=== PATIENT | female | born 1985 | race Caucasian/White ===

== ENCOUNTER 2016-12-10 20:04 | Inpatient (IN) | payer OTHER, SELFPAY ==
[~2016-12-10] VITALS: Ht 162.6 cm; Wt 64.9 kg
[2016-12-10] MEDS ORDERED: D 1010004 PO (20:35)
[2016-12-10] MEDS ORDERED: ZIPR80CA12 PO (20:35)
[2016-12-10] MEDS ORDERED: MOM 30ML SUSPENSION UDC PO PRN (22:00)
[2016-12-10] MEDS ORDERED: traZODone 50 MG TAB PO PRN (22:00)
[2016-12-10] MEDS ORDERED: MAALOX 30 ML SUSP *UDC PO PRN (22:00)
[2016-12-10] MEDS ORDERED: VITA200015 PO (22:08)
[2016-12-10 22:51] VITALS: BP 134/83
[2016-12-11 06:43] VITALS: BP 125/78
--- NOTE | 2016-12-12 04:45 | IPN ---
DATE: 12/09/2016 Staff spoke with Yareli Roman's mother and the following information was discovered that the last six months this patient has been in and out of hospitals over once a month. She is on her Geodon, which was most recently on has been for the last 1 1/2 months prescribed her at [facility]. According to mother, "she has failed every medication." We do not at this time know the doses of these medications. Mentioned were lithium, Depakote, Zyprexa. The patient was noted to do well on Abilify, but according to mom it suddenly failed. However, it also is noted that the patient changes her doses and times. She is "obsessed" with her weight and stops medications when she sees weight gain. Most recently, she has been, according to mother, mad at small things, easily angered, labile and verbally aggressive. 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 Apparently, when she was in the [facility], she became . Her first psychotic break was in 2004. Records of her doses and medications that she has used will need to be gotten. The mother does not recall the patient using Invega.
--- NOTE | 2016-12-12 08:00 | HPE ---
DATE OF ADMISSION: 12/10/2016 Please refer to psychiatric history and evaluation for further details on this admission. This examination and history is intended for medical issues which may need treatment, followup or consult on this 31-year-old female who was transferred from [facility] after she went there as her mother took her as the patient was delusional and hallucinating. She went to [facility] because per the records, she was hearing voices. She felt her meds were not working. Here today, she will not talk at all. The history states she lives with her parents in [place] and reports that per the record, that she was medically retired from the [employer]. Unable to do review of systems, patient would not talk. Unable to do physical exam. Patient did not want one, was not cooperative. Her vital signs on the record show blood pressure 135/80, pulse 68, respirations 16, temperature of 97.1, room air 100%. Patient would not participate in any other part of any exam or review of systems.
--- NOTE | 2016-12-12 13:24 | IPN ---
DATE: 12/12/2016 I saw Yareli Roman today for Ivone Vallecillo. Ms. Roman stayed locked in her bathroom and would not respond. Due to that, we suggested that her room be moved and that further observation be done. Interestingly, another patient and staff approached me and said that Ms. Roman and her had conversed but that when physician or medical staff approach her, she shuts down. No other detailed information except that I shared my weekend admission and progress with Ivone Hymanillan and her esthetician/spa coordinator today. No medication at this time. IMPRESSION: Continues to be schizoaffective disorder Patient has had numerous recent admissions and changes of medication. Information will have to be gathered on that. Mental status could be performed as patient was not responsive to speaking with physician or others. medical planner tried to meet with patient three times today. The first time, she was hiding behind a blanket, the second time she was sitting on a desk, and third time she responded saying that her name was not Yareli Roman. She was also found ripping things up and tearing up pictures. DIRK
--- NOTE | 2016-12-12 13:31 | MHHPE ---
DATE OF ADMISSION: 12/10/2016 This patient came from the [facility]. At that time, the information they provided stated that this 31-year-old female had presented with her mother stating that the patient had made statements that she did not feel safe at home and has been requesting admission to [facility] for suicidal ideation. Her affect was odd, her speech was hostile, but she laughed shortly thereafter. Her mood seemed highly labile, but asked if she had been sleeping, her response was "I'm tired of thinking. " [facility] also reports the patient is a 31-year-old female with schizoaffective disorder presently on Geodon. The patient says she has been compliant with her medications, but has been hearing voices. These hallucinations were making her feel overwhelmed. She reports lower back pain from working out earlier in the day. Described as muscle pain. Her working diagnosis at that time was bipolar mixed with psychotic features, chronic posttraumatic stress disorder, and borderline personality disorder. Staff assessed her there as a 31-year-old female, who presented calm and cooperative at that time, performing calisthenics and other exercises in her room and asking that her stretcher be taken out. Her speech was robotic, alternatively giggly and hostile. She was oriented, but her thought process was disorganized. She denied suicidal ideation, but stated she may not be safe at home. She reported medication compliance. Denied legal issues, drug or alcohol abuse. Her dose of ziprasidone was at maximum recommended dose. Apparently, numerous multiple recent hospitalizations. She was described at that facility as doing exercises in the room, being labile. Her affect was bizarre. Her speech apparently was robotic and removed. She was transferred here due to bed availability. In the emergency room, the patient had presented stating "I have been diagnosed with bipolar disorder, was recently diagnosed with schizoaffective disorder. My medications are not working, so I know that they have given me the wrong diagnosis, right?" The patient's mood was elevated and anxious, maintaining a "blunted affect." She reported she hears voices that disrupt her ability to concentrate, sleep and carry. In the emergency room, she became quickly disorganized with speech and loose association. The patient reported having multiple hospitalizations since 2004. In the emergency room, her speech pattern was pressured. Her mood was described as elevated and anxious. Her affect was described as blunted. Her behavior seemed restless and bizarre. Her energy level seemed erratic. Her thought process was tangential with loose association and flight of ideas. Insight was poor. The patient reported having VA benefits having been in the [employer]. She was medically retired, diagnosed with bipolar disorder and has been in treatment since that time. Lives with her parents. She requested transfer to [facility]; however all [facility] facilities were [facility]. She wanted to go to [facility] despite being told the facility was at capacity. She denied having any thoughts of harming herself or anyone else. She advised that she has been suffering from frequent auditory and visual hallucinations including seeing flashes of light and hearing disturbing voices. I briefly examined the patient this morning and it was reported to me that she was cleaning the patient area. She was seen in the hallway with her head against the wall; and when approached, she began yelling rape and that she was needing her personal area. No further mental status was possible at this time. IMPRESSION: Bipolar disorder with psychotic features. It should be noted that Geodon seems to be at maximum dosage and may need to be changed. In addition, when bed availability at the [facility] occurs, it is possible they may choose to transfer her. DIRK
[2016-12-12] MEDS ORDERED: LORazepam 2 MG/ML VIAL (J2060) IM ONE (15:00)
[2016-12-12] MEDS ORDERED: D31000CA PO (17:45)
--- NOTE | 2016-12-13 09:44 | IPNPDOC ---
[facility] Progress Note Progress Note DATE OF SERVICE: 12/13/16 HISTORY: This is video game script writer's first meeting with patient who was transferred from [facility] due to feeling unsafe at home, per ER report and initial assessors notes, patient was experiencing paranoia, delusional thinking, and psychosis involving hearing voices and seeing flashes of light. Unit staff indicated patient exhibiting bizarre behavior this morning and was observed to be cleaning lounge in frenzied manner this morning, was intrusive at times, floridly manic, responding poorly to staff attempts at redirection. Patient initially requested to speak with video game script writer today, and then refused. Patient later approached another provider requesting Geodon and arrangements were made for immediate restart of medication which patient had prior to been refusing. Patient continued to decline to interact with video game script writer, however, was calm and returned to room where she was observed to be sitting quietly. Later in morning patient apparently triggered fire alarm, escalated, and eventually was coded and medicated with 2 mg Ativan IM with good effect. On follow up, patient continued to decline to interact with video game script writer, however, was observed to be calm with no signs of acute distress. Patient has notable history of failure to respond to psychotropic medications as follows: Risperdal, Depakote, Abilify, Zyprexa, Wellbutrin, is at max dose of Geodon, reportedly with only partial effect prior to hospitalization. Patient is allergic to Haldol. Patient has questionable history of medication compliance. VITAL SIGNS: See below. NEW TEST RESULTS: No new results. Labs completed at [facility] on 12/08/16 within normal limits 12/10/16 EKG sinus rhythm with left axis deviation 12/10/15 hCG negative CURRENT MEDICATIONS: See below. MENTAL STATUS EXAMINATION: Patient is 31-year-old single female, medically retired , appears disheveled dressed in own clothing, makes poor eye contact, ambulates with steady gait, appears stated age. Speech: Is impoverished, delayed response, pressured, tangential, flight of ideas, normal volume, hostile at times Language skills are appear to be intact that require further assessment Thought processes including: Not goal-directed. Thought content: Irrational, illogical, tangential, paranoid, associations are loose and tangential Description of abnormal or psychotic thoughts: Declines to respond but expresses delusional thinking, appears to be experiencing intermittent audiovisual hallucinations, appears to be responding to internal stimuli, reported in ER history of hearing voices and seeing flashes of light Judgment: Poor. Insight: Poor. Orientation to time, place and person. Recent and remote memory: Requires further evaluation. Attention span and concentration: Poor. Language: Requires further evaluation. Fund of knowledge: Requires further evaluation. Mood: Labile, irritable, observed laughing inappropriately at times by staff, manic, appears anxious, irritable, depressed, Affect: Blunted, agitated at times DIAGNOSES: Schizoaffective disorder, rule out bipolar disorder, wilbert. ER record indicates patient has also been diagnosed in the past with borderline personality disorder. ASSESSMENT: Patient responded positively to Geodon restart and PRN medication today, is currently only willing to take Geodon. Patient was placed on one-to- one observation at time of code which will be reevaluated tomorrow. Will continue to monitor patient's response to medications, will attempt to switch patient to injectable medication once patient is re-stabilized on medication and is able to evaluate medication options. senior energy market coordinator will attempt to access collateral information to facilitate patient's treatment. Will begin to evaluate appropriateness of patient transfer to long-term care, either at [facility] or [facility] if patient does not respond to treatment and reasonable amount of time. MANAGEMENT PLAN: Encourage patient to continue taking psychotropic medication to address symptoms Patient on one-to-one observation Maintain safety precautions Patient to attend groups and participate in unit programming to develop coping strategies when able Engage patient in discharge planning process and arrange meeting with support system to ensure safe discharge planning when appropriate Patient to follow up with PCM upon discharge TIME SPENT: 60 minutes. Vital Signs Vital Signs Date Time Temp Pulse Resp B/P Pulse Ox O2 Delivery O2 Flow Rate FiO2 12/11/16 06:43 97.9 68 16 125/78 12/10/16 22:14 100 Room Air Current Medications Current Medications Acetaminophen (Tylenol Tab) 650 mg Q6HP PRN PO HEADACHE or DISCOMFORT; Start at 22:00; Stop 01/09/17 at 21:59 Al Hydrox/Mg Hydrox/Simethicone (Mylanta) 30 ml Q4HP PRN PO HEARTBURN/ INDIGESTION; Start 12/10/16 at 22:00; Stop 01/09/17 at 21:59 Diphenhydramine HCl (Benadryl) 50 mg Q4HP PRN PO ANXIETY/AGITATION; Start 12/11 at 13:30; Stop 01/10/17 at 13:29 Home Med (Med Rec Complete!) ASDIRECTED XX ; Start 12/10/16 at 22:15; Stop at 22:15; Status DC Lorazepam (Ativan) 2 mg Q4HP PRN PO ANXIETY/AGITATION; Start 12/11/16 at 13:30 ; Stop 12/18/16 at 13:29 Magnesium Hydroxide (Milk Of Magnesia) 30 ml DAILYPRN PRN PO CONSTIPATION; Start 12/10/16 at 22:00; Stop 01/09/17 at 21:59 Trazodone HCl (Desyrel) 50 mg QHSP PRN PO INSOMNIA; Start 12/10/16 at 22:00; Stop 01/09/17 at 21:59 Allergies Coded Allergies: Codeine (Verified Allergy, Unknown, 12/10/16) Haloperidol (Verified Allergy, Unknown, 12/10/16) Ivone Moon Dec 13, 2016 09:44
[2016-12-13] MEDS: ZIPRASIDONE 80 MG CAP (GEODON) PO SCH ×2 (10:18→18:11)
[2016-12-13 11:59] VITALS: BP 138/96
[2016-12-13] MEDS ORDERED: LORazepam 2 MG/ML VIAL (J2060) IM ONE (12:00)
[2016-12-13 18:00] VITALS: BP 125/73
[2016-12-14 06:18] VITALS: BP 135/83
[2016-12-14] MEDS: ZIPRASIDONE 80 MG CAP (GEODON) PO SCH (08:02)
--- NOTE | 2016-12-14 11:51 | CR.PDOC ---
[facility] Consultation Consultation PCP: None Known ATTENDING: Dr. Abhinav Noel HPI: 31yoF transferred from [facility] admitted to [facility] 12/10/16 for Bipolar disorder, being medically re-examined today. I am requested to reevaluate the patient today as per attending provider. I am requested to reevaluate labs and EKG from [facility] transfer and reattempt H&P. The patient was in her room with VO present. Patient is again denying to participate with history and physical. History is taken from chart. PMHx/PSH: as stated in chart Bipolar disorder PTSD BPD SOCHX: Resides in: [facility] Marital Status: Single per chart Tobacco use: non smoker per chart ETOH: none per chart Illicit Drugs: none per chart IV Drug Use: none per chart Tattoos done unprofessionally: unknown FAMHX: Pt is declining to provide history. ROS: pt is declining to provide history. PE: Pt declines to participate. [facility] 12/10/16. EKG: SR 85 bpm. LAD. [facility] 12/08/16 WBC 5.0 RBC 4.5 Hemoglobin 14.2 Hematocrit 40.2 MCV 88.4 MCH 31.2 Platelet 210 Sodium 138 Potassium 4.5 Chloride 103 CO2 24.1 Calcium 9.4 Glucose 76 BUN 14 Serum creatinine 0.9 Total protein 7.8 Total bilirubin 0.7 AST 35 ALT 16 GFR 73 Toxicology unremarkable HCG negative A&P: 31yoF transferred from [facility] admitted to [facility] 12/10/16 for Bipolar disorder, being medically re-examined today. I am requested to reevaluate the patient today as per attending provider. I am requested to reevaluate labs and EKG from admission and reattempt H&P. Patient is again denying to participate with history and physical. History is taken from chart. 1. Psych. Plan per Psychiatry. EKG on file. 2. Labs are reviewed from [facility] as noted above. 3. Follow up with PCP on discharge. 4. recreation therapy aides teacher Niharika and Andi present when I re-attempted to interview and examine patient. Vital Signs/I&O Vital Signs Date Time Temp Pulse Resp B/P Pulse Ox O2 Delivery O2 Flow Rate FiO2 12/14/16 06:18 97.5 72 18 135/83 12/10/16 22:14 100 Room Air Allergies Coded Allergies: Codeine (Verified Allergy, Unknown, 12/10/16) Haloperidol (Verified Allergy, Unknown, 12/10/16) Home Medications Scheduled Cholecalciferol (D3) 1,000 Unit Cap 1,000 UNIT PO DAILY nutritional supplement ( Reported) Ziprasidone Hydrochloride (Ziprasidone HCl) 80 Mg Cap 160 MG PO QHS BIPOLAR DISORDER (Reported) Vania Jama Dec 14, 2016 11:51 Vania Jama Dec 14, 2016 11:51
[2016-12-14] MEDS: LORazepam 2 MG TAB PO PRN ×2 (14:47→21:42)
[2016-12-14] MEDS: diphenhydrAMINE 50 MG CAP PO PRN ×2 (15:11→21:42)
--- NOTE | 2016-12-14 16:16 | IPNPDOC ---
[facility] Progress Note Progress Note DATE OF SERVICE: 12/14/16 HISTORY: Plumbing Mechanic met with patient today to assess treatment progress on inpatient unit. Patient was transferred from [facility] due to feeling unsafe at home , per ER report and initial assessors notes, patient was experiencing paranoia, delusional thinking, and psychosis involving hearing voices and seeing flashes of light. Unit staff indicate patient was calmer this morning and in better behavioral control, early this afternoon became agitated and was agreeable to taking PRN medication. Patient also attempted to attend group, apparently became frustrated in group and broke a pain pressure. Patient has been observed to be walking always, actively pacing at times, has been redirectable and commercial real estate underwriter has been able to engage patient for short interactions. Patient has stated that she is willing to take in [place], indicates today she believes Geodon has become only partially effective. Patient denies medication side effects. Patient indicates she is depressed and anxious, denied feeling suicidal or homicidal, provided no concrete response to commercial real estate underwriter's inquiry regarding audiovisual hallucinations, denied having urge to engage in self-injurious behavior. Patient's concentration and focus appear limited, energy level appears to vacillate, patient states her appetite is "fine." Per nursing, patient has been eating. At time of interaction patient was observed to be calm with no signs of acute distress. Patient has notable history of failure to respond to psychotropic medications as follows: Risperdal, Depakote, Abilify, Zyprexa, Wellbutrin, is at max dose of Geodon, reportedly with only partial effect prior to hospitalization. Patient is allergic to Haldol. Patient has questionable history of medication compliance. VITAL SIGNS: See below. NEW TEST RESULTS: No new results. Labs completed at [facility] on 12/08/16 within normal limits 12/10/16 EKG sinus rhythm with left axis deviation 12/10/15 hCG negative CURRENT MEDICATIONS: See below. MENTAL STATUS EXAMINATION: Patient is 31-year-old single female, medically retired , appears disheveled dressed in own clothing, makes poor eye contact, ambulates with steady gait, appears stated age. Speech: Is impoverished, delayed response, pressured, tangential, flight of ideas, normal volume, irritable at times Language skills appear to be intact but require further assessment Thought processes including: Not goal-directed. Thought content: Irrational, illogical, tangential, paranoid, associations are loose and tangential Description of abnormal or psychotic thoughts: Declines to respond but expresses delusional thinking, appears to be experiencing intermittent audiovisual hallucinations, appears to be responding to internal stimuli, reported in ER history of hearing voices and seeing flashes of light Judgment: Poor. Insight: Poor. Orientation to time, place and person. Recent and remote memory: Requires further evaluation. Attention span and concentration: Poor. Language: Requires further evaluation. Fund of knowledge: Requires further evaluation. Mood: Labile, irritable, observed crying while pacing hallway this afternoon, appears less manic than yesterday but continues to appear anxious, irritable, depressed, Affect: Blunted, irritable at times, afternoon agitation DIAGNOSES: Schizoaffective disorder, rule out bipolar disorder, wilbert. ER record indicates patient has also been diagnosed in the past with borderline personality disorder. ASSESSMENT: Patient responded positively to Geodon restart, had third dose this morning, informed commercial real estate underwriter at time of assessment that she wants to change medications to invega, added she has discussed with her mother. Patient to remain on one-to-one observation, has generally been compliant, need for one-to- one will be reevaluated tomorrow. Will begin invega tonight and will continue to monitor patient's response to medications, will attempt to switch patient to injectable medication once patient is re-stabilized on medication and is able to evaluate medication options. occupational health coordinator will continue to attempt to access collateral information to facilitate patient's treatment. Will begin process to transfer patient to longer term care at [place] and/or [facility] if patient does not respond to treatment in reasonable timeframe. MANAGEMENT PLAN: Initiate med trial invega 3 mg po q hs with plan to titrate as tolerated by patient. Change Geodon to 80 mg po q a.m. and evaluate discontinuation of medication. Patient on one-to-one observation Maintain safety precautions Patient to attend groups and participate in unit programming to develop coping strategies when able Engage patient in discharge planning process and arrange meeting with support system to ensure safe discharge planning when appropriate Patient to follow up with PCM upon discharge TIME SPENT: 40 minutes. Vital Signs Vital Signs Date Time Temp Pulse Resp B/P Pulse Ox O2 Delivery O2 Flow Rate FiO2 12/14/16 06:18 97.5 72 18 135/83 12/10/16 22:14 100 Room Air Current Medications Current Medications Acetaminophen (Tylenol Tab) 650 mg Q6HP PRN PO HEADACHE or DISCOMFORT; Start at 22:00; Stop 01/09/17 at 21:59 Al Hydrox/Mg Hydrox/Simethicone (Mylanta) 30 ml Q4HP PRN PO HEARTBURN/ INDIGESTION; Start 12/10/16 at 22:00; Stop 01/09/17 at 21:59 Diphenhydramine HCl (Benadryl) 50 mg Q4HP PRN PO ANXIETY/AGITATION Last administered on 12/14/16 15:11; Start 12/11/16 at 13:30; Stop 01/10/17 at 13:29 Home Med (Med Rec Complete!) ASDIRECTED XX ; Start 12/10/16 at 22:15; Stop at 22:15; Status DC Lorazepam (Ativan) 2 mg Q4HP PRN PO ANXIETY/AGITATION Last administered on 12/14 14:47; Start 12/11/16 at 13:30; Stop 12/18/16 at 13:29 Magnesium Hydroxide (Milk Of Magnesia) 30 ml DAILYPRN PRN PO CONSTIPATION; Start 12/10/16 at 22:00; Stop 01/09/17 at 21:59 Trazodone HCl (Desyrel) 50 mg QHSP PRN PO INSOMNIA; Start 12/10/16 at 22:00; Stop 01/09/17 at 21:59 Ziprasidone (Geodon) 80 mg BIDWM PO Last administered on 12/14/16 08:02; Start 12/13/16 at 08:00; Stop 01/12/17 at 07:59 Allergies Coded Allergies: Codeine (Verified Allergy, Unknown, 12/10/16) Haloperidol (Verified Allergy, Unknown, 12/10/16) Ivone Moon Dec 14, 2016 16:16
[2016-12-14 18:35] VITALS: BP 136/86
[2016-12-14] MEDS ORDERED: PALIPERIDONE 3 MG ER TAB (INVEGA) PO SCH (21:00)
[2016-12-15 06:42] VITALS: BP 128/78
[2016-12-15] MEDS ORDERED: ZIPRASIDONE 80 MG CAP (GEODON) PO SCH (09:00)
[2016-12-15] MEDS ORDERED: LORazepam 2 MG/ML VIAL (J2060) IM STA ×2 (10:35→10:39)
[2016-12-15] MEDS ORDERED: LORazepam 2 MG/ML VIAL (J2060) As Ordered ONE (10:37)
[2016-12-15] MEDS: PALIPERIDONE 3 MG ER TAB (INVEGA) PO SCH (11:08)
--- NOTE | 2016-12-15 13:11 | IPNPDOC ---
[facility] Progress Note Progress Note DATE OF SERVICE: 12/15/16 HISTORY: Paper Steamer met with patient this morning to assess treatment progress on inpatient unit. Patient was transferred from [facility] due to feeling unsafe at home , per ER report and initial assessors notes, patient was experiencing paranoia, delusional thinking, and psychosis involving hearing voices and seeing flashes of light. Patient was observed walking hallway, requested to meet with advertising copy writer in her room, was able to calmly sit on her bed for interaction. Patient indicates she wants to be transferred [place] facility, was made aware that we are awaiting word on bed availability. Patient makes improved eye contact today , is able to initiate and track conversation, informs advertising copy writer she feels "numb," denied invega dedication side effects, reiterates today that her Geodon was not working. Patient reported feeling "very" depressed, reported moderate anxiety, denied suicidal and homicidal ideation, denied audiovisual hallucinations, and denied urge to engage in self-injurious behavior. Paper Steamer recommended patient take increased dose of invega, patient indicated she is agreeable. At time of interaction patient reported improved sleep, stable appetite and energy level. Patient denied symptoms of physical pain. Addendum: Soon after interaction, apparently patient intruded on intervention being attempted by staff with another patient, escalated, refused to take by mouth PRN medication and was not redirectable. Patient was coded and given Ativan 2 mg IM with good effect. On follow-up patient was observed to be calm with no signs of acute distress noted. Patient has notable history of failure to respond to psychotropic medications as follows: Risperdal, Depakote, Abilify, Zyprexa, Wellbutrin, is at max dose of Geodon, reportedly with only partial effect prior to hospitalization. Patient is allergic to Haldol. Patient has questionable history of medication compliance. VITAL SIGNS: See below. NEW TEST RESULTS: No new results. Labs completed at [facility] on 12/08/16 within normal limits 12/10/16 EKG sinus rhythm with left axis deviation 12/10/15 hCG negative CURRENT MEDICATIONS: See below. MENTAL STATUS EXAMINATION: Patient is 31-year-old single female, medically retired , appears disheveled dressed in own clothing, makes improved eye contact, ambulates with steady gait, appears stated age. Speech: Is impoverished, delayed response, pressured, tangential, flight of ideas, normal volume, irritable at times, more conversant today Language skills appear to be intact but require further assessment Thought processes including: Not goal-directed. Thought content: Irrational, illogical, tangential, paranoid, associations remain loose, patient is less tangential Description of abnormal or psychotic thoughts: Patient states she is delusional , declines to elaborate, denies audiovisual hallucinations but appears to be responding to internal stimuli, reported in ER history of hearing voices and seeing flashes of light Judgment: Poor. Insight: Poor. Orientation to time, place and person. Recent and remote memory: Requires further evaluation. Attention span and concentration: Poor. Language: Requires further evaluation. Fund of knowledge: Requires further evaluation. Mood: Labile, irritable, tearful at times during interaction, appears less manic than yesterday but continues to appear anxious, irritable, depressed, Affect: Blunted, irritable at times DIAGNOSES: Schizoaffective disorder, rule out bipolar disorder, wilbert. ER record indicates patient has also been diagnosed in the past with borderline personality disorder. ASSESSMENT: Patient seems to be responding positively to Invega initiation, is more conversant today and marginally better able to describe symptoms, indicates she is agreeable to Invega dose increase, denies medication side effects other than feeling "numb" emotionally, then indicates emotional sensation preexisted initiation of invega. Patient to remain on one-to-one observation, has generally been compliant, need for one-to-one will be reevaluated tomorrow. Will increase invega and will continue to monitor patient' s response to medications, will attempt to switch patient to injectable medication once patient is re-stabilized on medication and is able to evaluate medication options. employee benefits coordinator will continue to attempt to access collateral information to facilitate patient's treatment and to make arrangements for transfer [place] [facility] when bed is available. MANAGEMENT PLAN: Discontinue Geodon. Increase invega to 6 mg po q day. Patient on one-to-one observation Maintain safety precautions Patient to attend groups and participate in unit programming to develop coping strategies when able Engage patient in discharge planning process and arrange meeting with support system to ensure safe discharge planning when appropriate Patient to follow up with PCM upon discharge TIME SPENT: 35 minutes. Vital Signs Vital Signs Date Time Temp Pulse Resp B/P Pulse Ox O2 Delivery O2 Flow Rate FiO2 12/15/16 06:42 97.5 87 16 128/78 12/10/16 22:14 100 Room Air Current Medications Current Medications Acetaminophen (Tylenol Tab) 650 mg Q6HP PRN PO HEADACHE or DISCOMFORT; Start at 22:00; Stop 01/09/17 at 21:59 Al Hydrox/Mg Hydrox/Simethicone (Mylanta) 30 ml Q4HP PRN PO HEARTBURN/ INDIGESTION; Start 12/10/16 at 22:00; Stop 01/09/17 at 21:59 Diphenhydramine HCl (Benadryl) 50 mg Q4HP PRN PO ANXIETY/AGITATION Last administered on 12/14/16 21:42; Start 12/11/16 at 13:30; Stop 01/10/17 at 13:29 Home Med (Med Rec Complete!) ASDIRECTED XX ; Start 12/10/16 at 22:15; Stop at 22:15; Status DC Lorazepam (Ativan) 2 mg Q4HP PRN PO ANXIETY/AGITATION Last administered on 12/14 21:42; Start 12/11/16 at 13:30; Stop 12/18/16 at 13:29 Magnesium Hydroxide (Milk Of Magnesia) 30 ml DAILYPRN PRN PO CONSTIPATION; Start 12/10/16 at 22:00; Stop 01/09/17 at 21:59 Paliperidone (Invega) 3 mg QHS PO Last administered on 12/14/16 20:06; Start 12/14/16 at 21:00; Stop 12/15/16 at 10:44; Status DC Paliperidone (Invega) 6 mg DAILY PO Last administered on 12/15/16 11:08; Start 12/15/16 at 09:00; Stop 01/14/17 at 08:59 Trazodone HCl (Desyrel) 50 mg QHSP PRN PO INSOMNIA Last administered on 20:06; Start 12/10/16 at 22:00; Stop 01/09/17 at 21:59 Ziprasidone (Geodon) 80 mg BIDWM PO Last administered on 12/14/16 08:02; Start 12/13/16 at 08:00; Stop 12/14/16 at 16:36; Status DC Ziprasidone (Geodon) 80 mg QAM PO ; Start 12/15/16 at 09:00; Stop 12/15/16 at 12 :49; Status DC Allergies Coded Allergies: Codeine (Verified Allergy, Unknown, 12/10/16) Haloperidol (Verified Allergy, Unknown, 12/10/16) Ivone Moon Dec 15, 2016 13:11
[2016-12-15 14:10] VITALS: BP 146/79
[2016-12-15 18:00] VITALS: BP 111/58
[2016-12-16 06:26] VITALS: BP 146/86
[2016-12-16] MEDS: PALIPERIDONE 3 MG ER TAB (INVEGA) PO SCH (08:30)
[2016-12-16] MEDS: LORazepam 2 MG TAB PO PRN (09:17)
--- NOTE | 2016-12-16 17:15 | IPNPDOC ---
[facility] Progress Note Progress Note DATE OF SERVICE: 12/16/16 HISTORY: Patient was transferred from [facility] due to feeling unsafe at home, per ER report and initial assessors notes, patient was experiencing paranoia, delusional thinking, and psychosis involving hearing voices and seeing flashes of light. Billing And Accounting Staff Assistant met with patient this morning to assess treatment progress on inpatient unit. Patient has utilized PRN Ativan 1 today, has been more visible on unit, walking the hallway, was more engageable for assessment purposes and stated, "it's possible the medication might be beginning to help." Patient registers no complaints regarding medication side effects. Patient was observed to be reading Bible in her room earlier in morning, then sitting closer to one- to-one observer near doorway of room. Patient met with functional tester typewriters in her room, offered functional tester typewriters a chair on which to sit, sat on her bed across from functional tester typewriters and made improved eye contact. Patient was able to ask repetitive questions related to medication and treatment, also made attempts to explain to functional tester typewriters that she continues to experience "demons in my head and they're trying to take me over," added, "when I look in the mirror I don't recognize the face." Patient reported slight reduction in symptoms of anxiety and depression, endorsed audio and visual hallucinations but denied command element. Patient denied suicidal and homicidal ideation. Patient indicates today she is comfortable on unit, states she would be alright staying on unit if no [place] beds become available. Patient has showered and washed her hair, reported improved sleep, stated appetite and energy levels remain stable. Patient denied symptoms of physical pain and presented with no signs of acute distress at time of interaction. Patient has notable history of failure to respond to psychotropic medications as follows: Risperdal, Depakote, Abilify, Zyprexa, Wellbutrin, is at max dose of Geodon, reportedly with only partial effect prior to hospitalization. Patient is allergic to Haldol. Patient has questionable history of medication compliance. VITAL SIGNS: See below. NEW TEST RESULTS: No new results. Labs completed at [facility] on 12/08/16 within normal limits 12/10/16 EKG sinus rhythm with left axis deviation 12/10/15 hCG negative CURRENT MEDICATIONS: See below. MENTAL STATUS EXAMINATION: Patient is 31-year-old single female, medically retired , appears disheveled dressed in own clothing, makes improved eye contact, ambulates with steady gait, appears stated age. Speech: Richard impoverished, more spontaneous, reduced delay in response, remains pressured pressured, tangential, flight of ideas, normal volume, more conversant today Language skills appear to be intact but require further assessment Thought processes including: More goal-directed. Thought content: Remains irrational, illogical, tangential, paranoid, associations are less loose, patient is less tangential Description of abnormal or psychotic thoughts: Patient states she is delusional and is better able to elaborate today, endorses audiovisual hallucinations but appears to be responding less to internal stimuli, reported in ER history of hearing voices and seeing flashes of light Judgment: Poor. Insight: Poor. Orientation to time, place and person. Recent and remote memory: Requires further evaluation. Attention span and concentration: Severely limited Language: Requires further evaluation, improving. Fund of knowledge: Requires further evaluation. Mood: "I'm still depressed." Patient is tearful earlier in a.m., mood improves as day progresses, appears less irritable and manic than yesterday but continues to appear anxious, depressed Affect: Blunted, less irritability DIAGNOSES: Schizoaffective disorder, rule out bipolar disorder, wilbert. ER record indicates patient has also been diagnosed in the past with borderline personality disorder. ASSESSMENT: Patient continues to respond to Invega, is more conversant today and better able to describe symptoms, indicates she is experiencing some symptom improvement with recent invega dose increase. Patient today denies medication side effects. Patient will remain on one-to-one observation, has generally been compliant, attempted to attend some groups today and per staff report crumpled up paper and was a disruption, however, did not lose behavioral control. Need for one-to-one will be reevaluated tomorrow. Will continue to monitor patient's response to medications and will titrate as tolerated by patient. Will attempt to switch patient to injectable medication once patient is stabilized on medication and is able to communicate medication options. irb compliance coordinator will continue to attempt to access collateral information to facilitate patient's treatment and to make arrangements for transfer to [place]/ [facility] when bed is available. MANAGEMENT PLAN: Continue invega 6 mg po q day, Ativan 2 mg po q 6 hours PRN anxiety/agitation, Benadryl 50 mg po q 6 hours anxiety/agitation, and trazodone 50 mg po hs PRN insomnia Patient on one-to-one observation Maintain safety precautions Patient to attend groups and participate in unit programming to develop coping strategies as able Engage patient in discharge planning process and arrange meeting with support system to ensure safe discharge planning when appropriate Patient to follow up with PCM upon discharge TIME SPENT: 35 minutes. Vital Signs Vital Signs Date Time Temp Pulse Resp B/P Pulse Ox O2 Delivery O2 Flow Rate FiO2 12/16/16 06:26 97.9 88 16 146/86 12/10/16 22:14 100 Room Air Current Medications Current Medications Acetaminophen (Tylenol Tab) 650 mg Q6HP PRN PO HEADACHE or DISCOMFORT; Start at 22:00; Stop 01/09/17 at 21:59 Al Hydrox/Mg Hydrox/Simethicone (Mylanta) 30 ml Q4HP PRN PO HEARTBURN/ INDIGESTION; Start 12/10/16 at 22:00; Stop 01/09/17 at 21:59 Diphenhydramine HCl (Benadryl) 50 mg Q4HP PRN PO ANXIETY/AGITATION Last administered on 12/14/16 21:42; Start 12/11/16 at 13:30; Stop 01/10/17 at 13:29 Home Med (Med Rec Complete!) ASDIRECTED XX ; Start 12/10/16 at 22:15; Stop at 22:15; Status DC Lorazepam (Ativan) 2 mg Q4HP PRN PO ANXIETY/AGITATION Last administered on 12/16 09:17; Start 12/11/16 at 13:30; Stop 12/18/16 at 13:29 Magnesium Hydroxide (Milk Of Magnesia) 30 ml DAILYPRN PRN PO CONSTIPATION; Start 12/10/16 at 22:00; Stop 01/09/17 at 21:59 Paliperidone (Invega) 3 mg QHS PO Last administered on 12/14/16 20:06; Start 12/14/16 at 21:00; Stop 12/15/16 at 10:44; Status DC Paliperidone (Invega) 6 mg DAILY PO Last administered on 12/16/16 08:30; Start 12/15/16 at 09:00; Stop 01/14/17 at 08:59 Trazodone HCl (Desyrel) 50 mg QHSP PRN PO INSOMNIA Last administered on 20:06; Start 12/10/16 at 22:00; Stop 01/09/17 at 21:59 Ziprasidone (Geodon) 80 mg BIDWM PO Last administered on 12/14/16 08:02; Start 12/13/16 at 08:00; Stop 12/14/16 at 16:36; Status DC Ziprasidone (Geodon) 80 mg QAM PO ; Start 12/15/16 at 09:00; Stop 12/15/16 at 12 :49; Status DC Allergies Coded Allergies: Codeine (Verified Allergy, Unknown, 12/10/16) Haloperidol (Verified Allergy, Unknown, 12/10/16) Ivone Moon Dec 16, 2016 17:15
[2016-12-16 18:00] VITALS: BP 120/72
[2016-12-17] MEDS: PALIPERIDONE 3 MG ER TAB (INVEGA) PO SCH (08:25)
--- NOTE | 2016-12-17 15:33 | IPN ---
DATE: 12/17/2016 Ms. Bruner requested to speak to me. She wanted to be taken off of her sitter and one-to-one and participate in groups. I discussed this with the staff. They were still not comfortable with her. Apparently she did not follow instructions this morning in group, and it was felt that the milieu in the unit was still somewhat agitated. We will re-discuss this again tomorrow. The patient is presently taking 6 mg of Invega. I will not make any change in her medication as of today. MENTAL STATUS EXAMINATION: Speech is normal. Mood is irritable. Affect is serious. Fund of knowledge is within normal limits. No disturbance of language. Attention and concentration within normal-normal. The patient presently is overtly displaying abnormal or psychotic thoughts, but I did not question her on these in order to not agitate her. She is fully oriented in three spheres. DIAGNOSIS: As per Ivone Moon.
[2016-12-17 18:00] VITALS: BP 138/85
[2016-12-18 06:22] VITALS: BP 132/64
[2016-12-18] MEDS: PALIPERIDONE 3 MG ER TAB (INVEGA) PO SCH (08:01)
[2016-12-18 18:00] VITALS: BP 133/82
[2016-12-19 06:21] VITALS: BP 167/72
[2016-12-19] MEDS: ACETAMINOPHEN TAB 650MG DOSE (2X325MG) PO PRN ×2 (07:03→13:07)
[2016-12-19] MEDS: PALIPERIDONE 3 MG ER TAB (INVEGA) PO SCH (08:06)
[2016-12-19 16:46] LABS: MEAN CORPUSCULAR HEMOGLOBIN 32.2 pg (27.0-33.0); MEAN CORPUSCULAR HGB CONC 35.4 g/dl (32.0-36.5); MEAN CORPUSCULAR VOLUME 90.8 fl (80.0-96.0); RED CELL DISTRIBUTION WIDTH 12.4 % (11.5-14.5); WHITE BLOOD COUNT 3.8 K/mm3 (4.0-10.0)
[2016-12-19] MEDS ORDERED: TRAZ50TA4 PO (16:48)
[2016-12-19] MEDS ORDERED: ATIV2TAB PO (16:48)
[2016-12-19] MEDS ORDERED: MILKSUS PO (16:48)
[2016-12-19] MEDS ORDERED: INVE6TAB2 PO (16:48)
[2016-12-19] MEDS ORDERED: BENA25CA4 PO (16:48)
[2016-12-19] MEDS ORDERED: MYLASUS6 PO (16:48)
[2016-12-19] MEDS ORDERED: TYLE325C PO (16:48)
[2016-12-19 17:22] LABS: METHADONE URINE NEGATIVE (NEGATIVE)
[2016-12-19 17:50] LABS: ALBUMIN/GLOBULIN RATIO 1.54 (1.00-1.93); ALKALINE PHOSPHATASE 44 U/L (45-117); ALT/SGPT 13 U/L (12-78); ANION GAP 8 MEQ/L (8-16); AST/SGOT 22 U/L (15-37); BILIRUBIN,TOTAL 0.3 MG/DL (0.2-1.0); BLOOD UREA NITROGEN 11 MG/DL (7-18); CALCIUM LEVEL 9.2 MG/DL (8.5-10.1); CARBON DIOXIDE LEVEL 26 MEQ/L (21-32); CHLORIDE LEVEL 105 MEQ/L (98-107); GLOMERULAR FILTRATION RATE > 60.0 (>60); GLUCOSE, FASTING 96 MG/DL (70-105); POTASSIUM SERUM 4.5 MEQ/L (3.5-5.1); SODIUM LEVEL 139 MEQ/L (136-145); TOTAL PROTEIN 6.6 GM/DL (6.4-8.2)
[2016-12-19 18:00] VITALS: BP 140/85
--- NOTE | 2016-12-19 18:09 | DS.PDOC ---
[facility] Discharge Summary Discharge Summary DATE OF ADMISSION: Dec 10, 2016 at 21:46 Date of discharge: 12/19/2016 DISCHARGE DIAGNOSES: 1. Bipolar 1, current episode manic with psychotic features. 2. Borderline personality disorder by history. 3. PTSD, by history. REASON FOR ADMISSION: The patient was a transfer from the [facility] system, where she had reportedly presented to the ER with her mother due to concerns that she was suicidal and severely distorted. Upon being evaluated was noted that she was fairly labile in her mood and endorse fairly bizarre and paranoid ideation. CONSULTANTS INVOLVED: None TREATMENT AND PROGRESS ON THE UNIT : Legal status on admission: 9.27 Medication Management: The patient initially was resistant to starting any medications and had reportedly been not taking her medications due to "weight gain" per her mother. The patient then appeared amenable one time to trying Geodon, she eventually did try some with moderate success. She then was switched onto paliperidone as in the past she had maxed out on Geodon with incomplete effect. She was eventually titrated up to 6 mg of Invega that appeared to produce some moderate effect as well. Psychotherapy: The patient has attended groups only very intermittently and has been on a one-to-one sitter during the majority of her stay Behavior: The patient has remained very distorted and paranoid during her mission. She is on a one-to-one sitter as she is been known to become intrusive and disruptive in the milieu. She remains religiously preoccupied "having demons in her head" and socially bizarre. Discharge planning: The patient requested to be transferred to the [facility]. This was done as the patient likely would need this transfer in order to be fully covered for her admission. Presentation was made to Dr. Michael at [facility] inpatient psychiatry whom excepted the patient. A doc to doc was done with this provider and Dr. Wick the on-call provider. DISCHARGE ASSESSMENT: 31-year-old woman with a history of bipolar disorder who [facility], presented in a distorted and psychotic state reportedly from bipolar disorder. She is made modest gains in her treatment after being started on low-dose of Geodon. Subsequent titration with paliperidone an agent that she has not tried in the past appear to be helpful and could pose a benefit for her outpatient noncompliance. MENTAL STATUS EXAMINATION ON DISCHARGE: General: Cooperative with good hygiene Speech: Spontaneous and fluid Thought processes: Thought blocking present somewhat disorganized Thought content:. Focused on [facility] transfer Abstract reasoning, and computation: [place] thinking Description of associations: Loose Description of abnormal or psychotic thoughts: Admits to some auditory hallucinations but is unwilling to describe them. Denies any visual hallucinations, suicidal or homicidal ideation. Judgment: Poor Insight: Poor Orientation: Alert and orientated 3 Recent and remote memory: Intact Attention span and concentration: Intact Fund of knowledge: Adequate Mood: "Okay" Affect: Flat/blunted PLAN/FOLLOWUP ARRANGEMENTS: The patient will be transferred to [facility] to the inpatient psychiatry floor. The arrangements for doc to doc accepting physician been completed per Dr. Michael. The amount of time spent in the coordination of care for this patient was approximately 30 minutes. Vital Signs Vital Sign - Last 24 Hours 12/19/16 06:21 Temp 97.8 Pulse 98 Resp 20 B/P 167/72 Laboratory Data Labs 24H Laboratory Tests 2 12/19/16 00:00: Urine Amphetamines Screen NEGATIVE, Urine Benzodiazepines Screen NEGATIVE, Urine Opiates Screen NEGATIVE, Urine Barbiturates Screen NEGATIVE, Urine Cannabinoids Screen NEGATIVE, Urine Cocaine Metabolite Screen NEGATIVE, Urine Methadone Screen NEGATIVE, Urine Phencyclidine Screen NEGATIVE 12/19/16 16:04: Blood Urea Nitrogen 11, Creatinine 0.90, Sodium Level 139, Potassium Level 4.5, Chloride Level 105, Carbon Dioxide Level 26, Calcium Level 9.2, Aspartate Amino Transf (AST/SGOT) 22, Alanine Aminotransferase (ALT/SGPT) 13, Alkaline Phosphatase 44L, Total Bilirubin 0.3, Total Protein 6.6, Albumin 4.0, Albumin/ Globulin Ratio 1.54, Anion Gap 8, Glomerular Filtration Rate > 60.0 CBC/BMP Laboratory Tests 12/19/16 16:04 Calcium Level 9.2, Aspartate Amino Transf (AST/SGOT) 22, Alanine Aminotransferase (ALT/SGPT) 13, Alkaline Phosphatase 44 L, Total Bilirubin 0.3, Total Protein 6.6, Albumin 4.0 12/19/16 16:05 Red Blood Count 3.86 L, Mean Corpuscular Volume 90.8, Mean Corpuscular Hemoglobin 32.2, Mean Corpuscular Hemoglobin Concent 35.4, Red Cell Distribution Width 12.4 Medications Scheduled Paliperidone (Invega) 6 Mg Tab 6 MG PO DAILY BIPOLAR (Reported) Scheduled PRN (Tylenol) 325 Mg Cap 650 MG PO Q6HP PRN PRN HEADACHE or DISCOMFORT (Reported) Aluminum/Magnesium/Simeth (Mylanta Double-Strength 400-400-40 mg/5Ml) 1 Isabelle Isabelle 30 ML PO Q4HP PRN PRN HEARTBURN/INDIGESTION (Reported) Diphenhydramine HCl (Benadryl Allergy) 25 Mg Cap 50 MG PO Q4HP PRN PRN ANXIETY/ AGITATION (Reported) Lorazepam (Ativan) 2 Mg Tab 2 MG PO Q4HP PRN PRN ANXIETY/AGITATION (Reported) Milk Of Magnesia (Milk of Magnesia) 1,200 Mg/15 Ml Isabelle 30 ML PO DAILYPRN PRN PRN CONSTIPATION (Reported) Trazodone HCl (Trazodone HCl) 50 Mg Tab 50 MG PO QHSP PRN PRN INSOMNIA (Reported ) Allergies Coded Allergies: Codeine (Verified Allergy, Unknown, 12/10/16) Haloperidol (Verified Allergy, Unknown, 12/10/16) GME ATTESTATION My preceptor for this patient encounter was physically present in the building during the encounter and was fully available. As needed, all aspects of the patient interview, examination, medical decision making process, and medical care plan development were reviewed and approved by the preceptor. Preceptor is aware and concurs with the plan as stated in the body of this note and will attest to such by his/her cosignature. Current Medications Current Medications Acetaminophen (Tylenol Tab) 650 mg Q6HP PRN PO HEADACHE or DISCOMFORT Last administered on 12/19/16 13:07; Start 12/10/16 at 22:00; Stop 01/09/17 at 21:59 Al Hydrox/Mg Hydrox/Simethicone (Mylanta) 30 ml Q4HP PRN PO HEARTBURN/ INDIGESTION; Start 12/10/16 at 22:00; Stop 01/09/17 at 21:59 Diphenhydramine HCl (Benadryl) 50 mg Q4HP PRN PO ANXIETY/AGITATION Last administered on 12/14/16 21:42; Start 12/11/16 at 13:30; Stop 01/10/17 at 13:29 Home Med (Med Rec Complete!) ASDIRECTED XX ; Start 12/10/16 at 22:15; Stop at 22:15; Status DC Lorazepam (Ativan) 2 mg Q4HP PRN PO ANXIETY/AGITATION Last administered on 12/16 09:17; Start 12/11/16 at 13:30; Stop 12/24/16 at 13:29 Magnesium Hydroxide (Milk Of Magnesia) 30 ml DAILYPRN PRN PO CONSTIPATION; Start 12/10/16 at 22:00; Stop 01/09/17 at 21:59 Paliperidone (Invega) 3 mg QHS PO Last administered on 12/14/16 20:06; Start 12/14/16 at 21:00; Stop 12/15/16 at 10:44; Status DC Paliperidone (Invega) 6 mg DAILY PO Last administered on 12/19/16 08:06; Start 12/15/16 at 09:00; Stop 01/14/17 at 08:59 Trazodone HCl (Desyrel) 50 mg QHSP PRN PO INSOMNIA Last administered on 20:06; Start 12/10/16 at 22:00; Stop 01/09/17 at 21:59 Ziprasidone (Geodon) 80 mg BIDWM PO Last administered on 12/14/16 08:02; Start 12/13/16 at 08:00; Stop 12/14/16 at 16:36; Status DC Ziprasidone (Geodon) 80 mg QAM PO ; Start 12/15/16 at 09:00; Stop 12/15/16 at 12 :49; Status DC SHANNON AGGARWAL DO Dec 19, 2016 18:09
--- NOTE | 2016-12-19 21:23 | ECGEPIP ---
Stationary ECG Study [facility] Test Date: 2016-12-19 Pat Name: BRIDGETTE POLO Department: Room: [place] [address] Gender: F Sign Erector: АНДРЕЙ : 1985 Requested By: LELA GAR Order Number: [id number] Reading MD: Jed Irizarry Measurements Intervals [place] Rate: 77 P: 64 OK: 168 QRS: 5 QRSD: 82 T: 38 QT: 372 QTc: 423 Interpretive Statements Normal sinus rhythm Normal EKG Comparison tracing not on file Electronically Signed On 12-19-2016 21:22:58 EDT by Jed Irizarry
== END 2016-12-19 19:32 | disposition designated cancer center or children's hospital (05) | DRG 885 ==
LOC: EDBD 20:04 → M ED 21:03 → M ED INP 21:46 → M PSY 22:37
PROVIDERS: ADMIT Psychiatry & Neurology Child & Adolescent Psychiatry; ATTEND Psychiatry & Neurology Psychiatry
DX: F31.64 Bipolar disorder, current episode mixed, severe, with psychotic features (principal); F43.12 Post-traumatic stress disorder, chronic; F60.3 Borderline personality disorder; Z88.5 Allergy status to narcotic agent; Z88.8 Allergy status to other drugs, medicaments and biological substances